=== PATIENT | male | born 1950 | race Two or more races ===

== ENCOUNTER 2021-08-31 11:36 | Emergency (ER) | payer OTHER ==
[~2021-08-31] VITALS: Ht 167.6 cm; Wt 91.6 kg
[~2021-08-31 11:36] MED LIST: CELEBREX100 MG PO; FLEXERIL10 MG PO; KETO10TA2 PO; MEDROL DOSE PACK PO; ORPH100T PO
[2021-08-31] MEDS ORDERED: GLUMETZA1000 MG PO (12:12)
[2021-08-31] MEDS ORDERED: GLIPIZIDE ER10 MG PO (12:12)
[2021-08-31] MEDS ORDERED: MULTIPLE VITAM1 EAC2 PO (12:13)
[2021-08-31] MEDS ORDERED: CHILDREN'S ASPI81 MG PO (12:13)
[2021-08-31] MEDS ORDERED: NAPROXEN500 MG PO (16:18)
== END 2021-08-31 16:26 | disposition home or self-care (01) ==
LOC: ER 11:36
DX: M25.561 Pain in right knee (principal); E11.9 Type 2 diabetes mellitus without complications; Z79.84 Long term (current) use of oral hypoglycemic drugs